=== PATIENT | female | born 2005 | race Caucasian/White ===

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

== ENCOUNTER 2023-08-10 00:05 | Emergency (ER) | payer OTHER ==
[~2023-08-10] VITALS: Ht 170.2 cm; Wt 90.7 kg
[2023-08-10 00:08] VITALS: BP_SYST 120; PULSE 107; RESP 20; TEMP 97.8; O2SAT 97
[2023-08-10] MEDS: ALBUTEROL SULFATE 0.083% 2.5 MG/3 ML VIAL.NEB INH ONE ×2 (00:43→01:18)
[2023-08-10] MEDS: predniSONE 20 MG TABLET PO ONE (00:47)
[2023-08-10] MEDS ORDERED: PRED20TA PO (01:25)
[2023-08-10] MEDS ORDERED: ALBMDI INH (01:25)
[2023-08-10] MEDS ORDERED: FLUT1DIS3 INH (01:28)
[2023-08-10 01:44] VITALS: BP_SYST 120; PULSE 107; RESP 20; TEMP 97.8; O2SAT 97
== END 2023-08-10 01:45 | disposition home or self-care (01) ==
LOC: SED 00:05
DX: J45.901 Unspecified asthma with (acute) exacerbation (principal)
CPT/HCPCS: 99284; 94640; J7512; 99283